=== PATIENT | female | born 1955 | race Caucasian/White ===

== ENCOUNTER → 2017-03-08 10:46 | Outpatient (CLI) | payer BC, SELFPAY ==
--- NOTE | 2017-03-08 10:51 | XR_ITS ---
XR ankle RT min 3V HISTORY: ITS.REASON: RT ANKLE PAIN ORDERING PHYSICIAN: Marah Choudhary PATIENT AGE: 61 years COMPARISON: None FINDINGS: No fracture or dislocation. There is a small lucency at the tip of the medial malleolus and may represent a small subarticular cyst. There is an oval lucency at the distal shaft of the fibula at 9 mm x 3 mm. Nonspecific. No significant arthritic change IMPRESSION: 1. No acute finding 2. Small lucency at the tip of the medial malleolus and the distal shaft of the fibula of questionable clinical significance. If pain persists, bone scan may be of further value to assure that these areas are benign
== END ==
PROVIDERS: PCP Internal Medicine Adolescent Medicine; Visit Provider Nurse Practitioner Family
DX: M25.571 Pain in right ankle and joints of right foot (principal)
CPT/HCPCS: 73610

== ENCOUNTER → 2017-03-28 09:23 | Outpatient (CLI) | payer BC, SELFPAY ==
--- NOTE | 2017-03-28 | XR_ITS ---
XR ankle RT min 3V HISTORY: ITS.REASON: BILATERAL ANKLE PAIN ORDERING PHYSICIAN: Suni Seymour DPM PATIENT AGE: 61 years COMPARISON: None FINDINGS: Weightbearing view performed and compared to 03/08/2017 No acute finding. Small lucencies are once again noted involving the distal shaft of the fibula and the tip of the medial malleolus unchanged. The joint spaces well-preserved. Talar dome is unremarkable. IMPRESSION: No change with no acute finding. Small lucencies of the distal fibula and tip of the medial malleolus of questioned clinical significance
--- NOTE | 2017-03-28 | XR_ITS ---
XR ankle LT min 3V HISTORY: ITS.REASON: BILATERAL ANKLE PAIN ORDERING PHYSICIAN: Suni Seymour DPM PATIENT AGE: 61 years COMPARISON: None FINDINGS: Weightbearing views are performed No fracture or dislocation. No lytic or blastic change. There is normal mineralization.. The joint spaces are well-preserved. No significant degenerative/arthritic changes. No erosive changes evident. Unremarkable talar dome IMPRESSION: Negative left ankle, no acute finding
== END ==
PROVIDERS: Visit Provider Podiatrist
DX: M25.571 Pain in right ankle and joints of right foot (principal); M76.70 Peroneal tendinitis, unspecified leg
CPT/HCPCS: 73610

== ENCOUNTER → 2017-12-30 16:14 | Outpatient (CLI) | payer BC, SELFPAY ==
--- NOTE | 2017-12-30 | MM_ITS ---
MM Dig screening mamm BI w/CAD CAD Screening COMPARISON: Digital mammograms with CAD 10/29/2016 and 09/16/2015 INDICATION: There is no personal or family history of breast cancer TECHNIQUE: Standard CC and MLO images were obtained. R2 CAD reviewed. FINDINGS: Moderate diffuse fibroglandular densities are seen in the central portions of both breasts. Again noted is the benign-appearing nodular density just deep to the nipple right breast shown to be solid on ultrasound previously and likely a fibroadenoma. It is stable and unchanged from previous studies. There are couple benign-appearing calcifications in each breast. There is no suspicious lesion and there are no suspicious microcalcifications. There is minimal arterial calcification in each breast. IMPRESSION: Stable exam no suspicious lesion seen BI-RADS Category: 2 Benign Finding(s) RECOMMENDED FOLLOW-UP: 1YR - 1 YEAR FOLLOW-UP (A letter has been sent to the patient regarding results of the study.)
== END ==
PROVIDERS: PCP Nurse Practitioner Family; Visit Provider Nurse Practitioner Family
DX: Z12.31 Encounter for screening mammogram for malignant neoplasm of breast (principal)
CPT/HCPCS: 77067

== ENCOUNTER → 2018-02-18 15:05 | Outpatient (POV) | payer BC, SELFPAY | PROVIDERS: Visit Provider Dermatology | DX: Z00.00 Encounter for general adult medical examination without abnormal findings (principal) ==

== ENCOUNTER 2018-03-14 16:00 | Outpatient (RCR) | payer BC, SELFPAY ==
--- NOTE | 2018-02-10 10:33 | HMH.PTOPWND ---
Rehab Outpt Wound Evaluation Rehab OP Wound Evaluation Start: 02/10/18 10:04 Freq: Status: Active Protocol: Document 02/10/18 10:26 MARYBETH (Rec: 02/10/18 10:33 PHOGAY [id number]) Electronically Signed By Ronnie Agosto, PT 02/10/18 10:26 Subjective/History History History Pt is 62 yowf who presents with c/o chronic varicose veins with increasing severity x ~ 15 yrs. She reports only mild edema, but increased pain from varicosities, especially in the upper thigh. She reports more discomfort in the evening and she wors on her feet all day. She reports PMH of HTN, DM, and hypothyroid. Subjective Subjective Tender to palpation around pallavi LE, worse in areas of varicose veins. Lymphedema Eval Classification of Lymphedema Secondary Lymphedema Yes: CVI Stemmer's sign Stemmer's Sign no Stage of Lymphedema Lymphedema stages Stage 0 (subjective c/o heaviness and aching) Skin Changes Dry Skin Yes Discoloration of Skin Yes Other Changes Yes Pain Scale Pain Scale (0-10) 6 Affected Extremities Areas Affected by Lymphedema/Edema Right Lower Extremity Left Lower Extremity Manual Lymphatic Drainage Treatment Area MLD Treatment Area Right Lower Extremity Left Lower Extremity Wound Problems/Impairments Impairments Problems/Impairmments Palpation Tenderness Impaired Recreational Activities Increased Edema Lymphedema Present Subjective C/O Pain Impaired Self Care/Self Management Prognosis Rehab Potential Good Clinical Impression Consistent with Diagnosis Yes Short Term Goals Number of Weeks 4 Decreased Palpation Tenderness Yes: to min Decrease Edema Yes Decrease Subjective C/O Pain Yes: 05/21 Patient to Understand Lymphedema Yes Treatment and Exercises Decrease Girth Measurments by (cm) Yes: by 5 cm Print Binding Worker Goals Number of Weeks 8 Decreased Palpation Tenderness Yes: to none Decrease Edema Yes Decrease Subjective C/O Pain Yes: 2/10 Patient to be Ind w/ HEP Yes
== END 2018-03-14 16:05 | disposition home or self-care (01) ==
LOC: PT 16:00
PROVIDERS: Visit Provider Nurse Practitioner Family
DX: I87.2 Venous insufficiency (chronic) (peripheral) (principal)
CPT/HCPCS: 97140; 97162; 97760

== ENCOUNTER → 2019-01-20 14:50 | Outpatient (CLI) | payer BC, SELFPAY ==
--- NOTE | 2019-01-20 14:52 | MM_ITS ---
PROCEDURE: MM DIG SCREENING MAMM BI W/CAD CLINICAL INDICATION: screening There is no personal or family history of breast cancer. COMPARISON: [facility] DIG MAMM-SCREEN ARNULFO from 09/16/2015 [facility] DIG MAMM-SCREEN ARNULFO W/CAD from 10/29/2016 [facility] MM Dig screening mamm BI w/CAD from 12/30/2017 TECHNIQUE: Standard CC and MLO images were obtained. R2 CAD reviewed. FINDINGS: Moderate scattered fibroglandular densities are seen in both breasts. Again noted is the asymmetric benign-appearing nodular density just deep to the nipple right breast which has been shown to be solid on previous ultrasound is stable on mammograms back through 09/16/2015 there are couple benign-appearing microcalcifications right breast there is no new or suspicious lesion in either breast and no suspicious microcalcifications. IMPRESSION: Stable exam with no suspicious lesions seen BI-RAD Category: 2 Benign Finding(s) FOLLOW-UP: 1YR 1 Year Follow-up (A letter has been sent to the patient regarding results of the study.) Dictated by: Dr. David Rivera MD 01/25/2019 12:[address] David Rivera MD in [place] 01/25/2019 12:50
== END ==
PROVIDERS: PCP Nurse Practitioner Family; Visit Provider Nurse Practitioner Family
DX: Z12.31 Encounter for screening mammogram for malignant neoplasm of breast (principal)
CPT/HCPCS: 77067

== ENCOUNTER → 2020-01-22 10:29 | Outpatient (CLI) | payer BC, SELFPAY ==
--- NOTE | 2020-01-22 10:32 | MM_ITS ---
PROCEDURE: MM DIG SCREENING MAMM BI W/CAD Digital Breast Tomosynthesis Included CLINICAL INDICATION: SCREENING There is no personal or family history of breast cancer. COMPARISON: MG [facility] DIG MAMM-SCREEN ARNULFO W/CAD from 10/29/2016 MG [facility] MM Dig screening mamm BI w/CAD from 12/30/2017 MG MM DIG SCREENING MAMM BI W/CAD from 01/20/2019 TECHNIQUE: Standard CC and MLO images and 3D Tomosynthesis was obtained. R2 CAD reviewed. FINDINGS: Scattered fibroglandular densities are seen in both breasts. Again noted is a stable asymmetric density just deep to the nipple right breast which has been shown to be solid on previous ultrasound and has been stable on multiple previous mammograms. There is a small collection of microcalcifications central portion right breast some of which were seen previously but there appear to be additional calcification on the current exam. Recommend the patient return for spot compression magnification views and ultrasound for additional evaluation. IMPRESSION: Moderate breast density with possible change in microcalcifications right breast BI-RAD Category: 0 Need Additional Imaging Evaluation FOLLOW-UP: IMM Immediate Follow-up Recommended (A letter has been sent to the patient regarding results of the study.) Dictated by: Dr. David Rivera MD 01/27/2020 10:24 Dr. David Rivera MD in [place] 01/27/2020 10:24
== END ==
PROVIDERS: PCP Nurse Practitioner Family; Visit Provider Nurse Practitioner Family
DX: Z12.31 Encounter for screening mammogram for malignant neoplasm of breast (principal)
CPT/HCPCS: 77063; 77067

== ENCOUNTER → 2020-02-11 14:04 | Outpatient (CLI) | payer BC, SELFPAY ==
--- NOTE | 2020-02-11 14:06 | MM_ITS ---
PROCEDURE: MM DIG MAMM DX UNILAT RT CAD Referring Doctor: Marah Choudhary Patient Age:64Y CLINICAL INDICATION: ABN MAMM OF RT BREAST Further evaluate calcifications and nodule COMPARISON: MG [facility] DIGITAL MAMM-SCREEN BILATERAL from 05/09/2010 MG [facility] DIGITAL MAMM-SCREEN BILATERAL from 05/27/2012 US BR US BREAST-RT from 06/11/2012 MG [facility] DIG MAMM-SCREEN ARNULFO from 08/23/2014 MG [facility] MM Dig screening mamm BI w/CAD from 12/30/2017 MG MM DIG SCREENING MAMM BI W/CAD from 01/20/2019 MG MM DIG SCREENING MAMM BI W/CAD from 01/22/2020 TECHNIQUE: Standard CC and MLO images were obtained. R2 CAD reviewed. Bilateral digital breast tomosynthesis included. FINDINGS: ---DIAGNOSTIC RIGHT MAMMOGRAM-MAGNIFICATION VIEWS magnification cc MLO and a full 90 degree view of the right breast performed today. Small grouping of fairly dense but slight variable calcifications associated with the tiny 3.8 mm nodular density at the superior right breast, 1 o'clock position again noted the these are likely benign calcifications but since they are new since 2019, associated with small nodule and demonstrate slight varied morphology of these calcifications-suggest stereotactic biopsy for definitive diagnosis The nodular density at the medial retroareolar region has been seen on previous studies dating back to at least 2014; similar size to those previous mammogram studies it is most compatible with a longstanding stable ---ULTRASOUND RIGHT BREAST including axillary survey The nodular density seen on recent mammogram at medial retroareolar now surveyed with ultrasound The is a a longstanding feature This longstanding solid nodule behind the nipple again seen measuring to 1.5 cm maximally maximally. It is a silent nodule and nearly isoechoic to adjacent breast tissue. Of it is most compatible with a stable benign fibroadenoma and appears similar in appearance to studies dating back to 2013. No significant change Tiny benign 2.3 mm the mm cyst at 12 o'clock position.. Insignificant feature. No additional findings otherwise right breast ultrasound-no suspicious masses or architectural distortion elsewhere Axillary survey is demonstrate benign appearing axillary lymph nodes but no significant findings IMPRESSION: 1.. RIGHT DIAGNOSTIC MAMMOGRAM-. RECOMMEND STEREOTACTIC BIOPSY Additional views and magnification views the right breast performed today show a small new cluster of calcifications 1 o'clock, associated with a tiny new breast nodule. Although I suspect more likely benign calcifications would recommend stereotactic biopsy for definitive diagnosisn with this appearance-given this is a new grouping of calcifications since 2019, with slightly varied morphology and associated with a new small nodule. 2:. 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 . Thus this can be followed safely BI-RAD Category: 4 Supicious Abnormality- Biopsy Considered FOLLOW-UP: Biopsy Recommended (A letter has been sent to the patient regarding results of the study.) Dictated by: Nehemiah Rangel MD 02/16/2020 12:56 Nehemiah Rangel MD in [place] 02/16/2020 12:56
== END ==
PROVIDERS: PCP Nurse Practitioner Family; Visit Provider Nurse Practitioner Family
DX: R92.8 Other abnormal and inconclusive findings on diagnostic imaging of breast (principal)
CPT/HCPCS: 76641; 77061; 77065; G0279

== ENCOUNTER → 2020-03-02 11:21 | Outpatient (CLI) | payer BC, SELFPAY ==
--- NOTE | 2020-03-02 11:27 | MM_ITS ---
PROCEDURE: MM STEREOTACTIC LOC RT CLINICAL INDICATION: ABN MAMM Suspicious calcifications of the right breast TECHNIQUE: The patient was placed on the stereotactic table and the abnormality was localized in the most appropriate projection. The breast was prepped in the routine manner, with sterile prep and the overlying skin anesthetized. A 3 to 4 mm skin incision was performed and the 9 gauge sorus vacuum-assisted core biopsy needle was advanced to the region of the calcification. Pre- and post fire images were obtained. After adequate positioning relative to the calcifications was ensured, multiple biopsies were obtained in the region of the calcifications specifically. The core biopsies obtained were sent for specimen mammography. After the calcifications were indeed identified on the specimen mammogram, the procedure was terminated. The patient tolerated the procedure well without complications. Pathology: Benign breast tissue demonstrated usual ductal hyperplasia. Changes consistent with sequela of ruptured duct/cyst. Microcalcifications. IMPRESSION: Status post stereotactic directed biopsy of the right breast showing benign findings. No immediate complications. SPECIMEN RADIOGRAPH: The mammographically evident calcifications from the prior study are currently evident within the Deja dish and within the specimens obtained during mammotome procedure. This is considered an adequate specimen and the procedure was terminated. IMPRESSION: Successful removal of described breast calcifications. BREAST MAMMOGRAM: Compared to the prior study, the previously noted calcification have been removed. Post biopsy changes are present in the medial aspect of the right breast at the previously noted area of calcification. There is evidence of soft tissue changes in the region of the biopsy was soft tissue gas and edema. Impression: Status post removal right breast calcifications as described above. Recommend six-month mammographic follow-up per routine protocol. Dictated by: Vinnie Carpio MD 03/14/2020 12:08 Vinnie Carpio MD in [place] 03/14/2020 12:08
--- NOTE | 2020-03-02 11:27 | MM_ITS ---
PROCEDURE: MM DIG MAMM DX UNILAT RT CAD CLINICAL INDICATION: for evaluation s/p biopsy COMPARISON: MG MM DIG SCREENING MAMM BI W/CAD from 01/22/2020 MG MM SURGICAL SPECIMEN RT from 03/02/2020 TECHNIQUE: Cc and MLO views FINDINGS: S/p stereotactic directed biopsy of the right breast. Cluster of calcifications in the central aspect of the right breast have been removed with post biopsy changes noted slightly medial to midline IMPRESSION: Status post stereotactic directed biopsy of the right breast with post biopsy changes. Recommend six-month follow-up per routine protocol. BI-RAD Category: 2 Benign Finding(s) FOLLOW-UP: 6M 6Month Follow-up (A letter has been sent to the patient regarding results of the study.) Dictated by: Vinnie Carpio MD 03/14/2020 15:59 Vinnie Carpio MD in [place] 03/14/2020 15:59
== END ==
PROVIDERS: PCP Nurse Practitioner Family; Visit Provider Nurse Practitioner Family
DX: R92.0 Mammographic microcalcification found on diagnostic imaging of breast (principal)
CPT/HCPCS: 19081; 76098; 77061; 77065; G0279

== ENCOUNTER → 2021-01-12 09:20 | Outpatient (CLI) | payer BC, SELFPAY ==
[2021-01-12 10:28] LABS: Chloride 98 mmol/L (98-107); Potassium 4.5 mmoL/L (3.5-5.1); Sodium 139 mmol/L (136-145)
[2021-01-12 10:31] LABS: Blood Urea Nitrogen 12 mg/dl (7-17); Estimated Glomerular Filt Rate 72 ml/min (>60); GFR (African American) 88 ML/MIN (>60)
[2021-01-12 10:32] LABS: Anion Gap 11.5 mEq/L (5-15); Calcium 9.7 mg/dl (8.4-10.2); Carbon Dioxide 34 mmol/L (22.0-30.0); Glucose 193 mg/dl (74-100)
[2021-01-12 12:33] LABS: Hemoglobin A1C 8.5 % (4.0-6.0)
== END ==
PROVIDERS: Visit Provider Nurse Practitioner Family
DX: E11.9 Type 2 diabetes mellitus without complications (principal); Z79.84 Long term (current) use of oral hypoglycemic drugs
CPT/HCPCS: 36415; 80048; 83036

== ENCOUNTER → 2022-02-07 09:26 | Outpatient (CLI) | payer BC, SELFPAY ==
--- NOTE | 2022-02-07 09:35 | XR_ITS ---
FINAL REPORT TECHNIQUE: Bone densitometry calculations of the lumbar spine and left hip were obtained. CLINICAL HISTORY: post menopausal FINDINGS: DEXA BONE DENSITY AXIAL SKELETON Using L1-4, the bone mineral density of the spine is 1.188 g/cm2, corresponding to T-score of 1.3. Using the left hip, the bone mineral density of the femoral neck is 0.921 g/cm2, corresponding to a T-score of -0.2. NOTE: T-score: Standard deviation compared with peak bone mass of young adult mean. *Following the recommendations of the International Society of Bone densitometry, classification of hip BMD is based on the lower of two T-scores; total hip or femoral neck. IMPRESSION: Normal bone mineral density of the lumbar spine and hip. Reviewed, Interpreted and Dictated by Randall Harrell III, MD Transcribed by Mary Workman Authenticated and [facility]
--- NOTE | 2022-02-07 09:35 | MM_ITS ---
PROCEDURE INFORMATION: Exam: MG Bilateral Screening 3D Mammography Exam date and time: 02/07/2022 9:27 AM Age: 66 years old Clinical indication: Screening examination TECHNIQUE: Imaging protocol: Bilateral Screening tomosynthesis and 2D mammography including computer-aided detection (CAD) when performed. COMPARISON: 1. MG MM DIG MAMM DX UNILAT RT CAD 03/02/2020 12:47 PM 2. MG MM SURGICAL SPECIMEN RT 03/02/2020 12:34 PM FINDINGS: MAMMOGRAPHY: Breast composition: There are scattered areas of fibroglandular density. Mass: None. Architectural distortion: None. Calcifications: No suspicious calcifications. Asymmetric density: None. Skin thickening: None. Axillary adenopathy: None. IMPRESSION: No mammographic evidence of malignancy. Annual screening is recommended unless otherwise clinically indicated. ASSESSMENT: BI-RADS Category 1: Negative
== END ==
PROVIDERS: PCP Nurse Practitioner Family; Visit Provider Nurse Practitioner Family
DX: Z12.31 Encounter for screening mammogram for malignant neoplasm of breast (principal); Z78.0 Asymptomatic menopausal state; Z13.820 Encounter for screening for osteoporosis
CPT/HCPCS: 77063; 77067; 77080

== ENCOUNTER → 2022-05-03 09:03 | Outpatient (CLI) | payer BC, SELFPAY ==
--- NOTE | 2022-05-03 09:09 | XR_ITS ---
FINAL REPORT CLINICAL HISTORY: PAIN FINDINGS: RIGHT KNEE 3 views of the right knee were obtained. There is no acute fracture or dislocation. Visualized joint spaces are normally aligned. There are osteophytes along the inferior and superior patella margin. There is sharpening of the tibial spines. Soft tissues are unremarkable. IMPRESSION: No acute bony abnormality. Reviewed, Interpreted and Dictated by Marlon Timmons MD Transcribed by Mary Workman Authenticated and [facility]
--- NOTE | 2022-05-03 09:10 | XR_ITS ---
FINAL REPORT CLINICAL HISTORY: PAIN FINDINGS: LEFT KNEE 3 views of the left knee were obtained. There is no acute fracture or dislocation. Visualized joint spaces are normally aligned. There are osteophytes along the inferior and superior patella margin. There is opening of the tibial spine. Soft tissues are unremarkable. IMPRESSION: Findings consistent with mild osteoarthritis. No acute bony abnormality. Reviewed, Interpreted and Dictated by Marlon Timmons MD Transcribed by Mary Workman Authenticated and [facility]
== END ==
PROVIDERS: PCP Nurse Practitioner Family; Visit Provider Nurse Practitioner Family
DX: M25.562 Pain in left knee (principal); M79.605 Pain in left leg; M25.561 Pain in right knee; M79.604 Pain in right leg
CPT/HCPCS: 73562

== ENCOUNTER 2022-07-08 16:44 | Emergency (ER) | payer BC, SELFPAY ==
[2022-07-08 16:45] VITALS: BP 149/65; PULSE 78; RESP 16; TEMP 36.7; O2SAT 98; BMI 30.7
--- NOTE | 2022-07-08 16:58 | HMH.EDGENADL ---
Discharge Plan Disposition Patient Disposition: Home, Self-Care Prescriptions Prescriptions: New ibuprofen 800 mg tablet 800 mg PO TID PRN (Reason: pain) 7 Days Qty: 20 0RF hydrocodone-acetaminophen 5-325 mg tablet 1 tab PO Q6H PRN (Reason: pain) 3 Days Qty: 12 0RF No Action metformin 1,000 mg tablet PO 30 Days Qty: 60 Label Comments: levothyroxine 100 mcg tablet PO 30 Days Qty: 30 Label Comments: losartan 50 mg tablet PO 30 Days Qty: 30 Label Comments: glimepiride 4 mg tablet PO 30 Days Qty: 45 Label Comments: bisoprolol-hydrochlorothiazide 10-6.25 mg tablet PO 30 Days Qty: 30 Label Comments: sitagliptin phosphate [Januvia] 100 mg tablet 100 mg PO ONCE esomeprazole magnesium [Nexium] 20 mg capsule,delayed release(DR/EC) 20 mg PO ONCE aspirin [Adult Aspirin Regimen] 81 mg tablet,delayed release (DR/EC) PO pravastatin 40 mg tablet PO 30 Days Qty: 30 Label Comments: diclofenac sodium [Voltaren] 1 % gel 4 g TOPICAL QID Qty: 30 2RF Rx Instructions: apply to single knee, ankle, foot; gently massage into area; for foot includes sole/toes/top of foot Referrals Follow up/Referrals: Marah Choudhary APRN [Primary Care Provider] - See instructions Activity Restrictions/Add. Instructions Additional Instructions/Restrictions: You have acute pain of your left knee and diagnostic uncertainty. The x-ray did show mild osteoarthritis however your pain is out of proportion to what I normally see with this. Your limited mobility and weightbearing and subjective complaints of redness and warmth early on make me worried about a septic joint however the arthrocentesis attempt was dry. Additionally your inflammatory markers including your CRP and ESR were within normal limits suggesting against the diagnosis of a septic joint or systemic infection. However due to the diagnostic uncertainty I advised that you keep a close eye on yourself return with any worsening of your pain lower extremity swelling shortness of breath or chest pain or high fevers. I would like for you to keep your appointment with your MRI on July 16 and return to the emergency department any worsening symptoms. Clinical Impressions Clinical Impression: Acute pain of left knee Discharge ED Provider: Delmy Holbrook General Adult HPI General Chief complaint: PAIN Stated complaint: LT leg pain Time Seen by Provider: 07/08/22 16:58 History of Present Illness HPI narrative: Patient is a 66-year-old female with no significant past medical history presenting today with nontraumatic left knee pain. She states that this began a few weeks ago she went to an orthopedic surgeon and had an intra-articular joint injection that was done without any improvement in her symptoms. She states that her knee has progressed to the point of having severe pain subjective warmth swelling and difficulty with range of motion out to the point of having difficulty bearing weight as of today. She denies any fevers chills or systemic symptoms. She has no history of gout. There is no circumferential lower leg swelling and no pain outside of the localized aspect of her knee. No history of DVT or PE. No chest pain or shortness of breath. No prolonged immobilizations. She states the pain is severe at the moment. Related Data Home Medications Medication Instructions Recorded Confirmed aspirin 81 mg tablet,delayed PO 03/28/17 release (Adult Aspirin Regimen) bisoprolol 10 PO 30 days ##30 03/28/17 mg-hydrochlorothiazide 6.25 mg tablet esomeprazole magnesium 20 mg 20 mg PO ONCE 03/28/17 capsule,delayed release (Nexium) glimepiride 4 mg tablet PO 30 days ##45 03/28/17 levothyroxine 100 mcg tablet PO 30 days ##30 03/28/17 losartan 50 mg tablet PO 30 days ##30 03/28/17 metformin 1,000 mg tablet PO 30 days ##60 03/28/17 pravastatin
[2022-07-08 17:01] VITALS: BP 130/75; PULSE 73; RESP 20; O2SAT 96
--- NOTE | 2022-07-08 17:10 | XR_ITS ---
PROCEDURE INFORMATION: Exam: XR Left Knee Exam date and time: 07/08/2022 5:25 PM Age: 66 years old Clinical indication: Pain; Knee; Left; Additional info: Non traumatic pain TECHNIQUE: Imaging protocol: Radiologic exam of the left knee. Views: 3 views. COMPARISON: CR XR KNEE LT 3V 05/03/2022 9:20 AM FINDINGS: Bones/joints: There is moderate joint space narrowing in the medial compartment. There is mild spurring of the tibial spines. No acute fracture. Small amount of joint fluid noted. Soft tissues: Normal. IMPRESSION: Mild osteoarthritis and small joint effusion. No acute fracture
[2022-07-08 17:31] VITALS: BP 125/56; PULSE 72; RESP 20; O2SAT 95
[2022-07-08 17:42] LABS: Alanine Aminotransferase 26 U/L (12-78); Albumin Level 4.3 g/dl (3.5-5.0); Albumin/Globulin Ratio 1.3 (1.1-1.8); Alkaline Phosphatase 41 U/L (38-126); Anion Gap 16.3 mEq/L (5-15); Aspartate Amino Transferase 31 U/L (14-36); Bilirubin,Total 0.4 mg/dl (0.2-1.3); Blood Urea Nitrogen 21 mg/dl (7-17); Calcium 9.2 mg/dl (8.4-10.2); Carbon Dioxide 32 mmol/L (22.0-30.0); Chloride 98 mmol/L (98-107); Creatinine Clearance Estimated 70 mL/min (50-200); Estimated Glomerular Filt Rate 50 ml/min (>60); GFR (African American) 61 ML/MIN (>60); Globulin 3.3 g/dL (1.3-3.2); Glucose 184 mg/dl (74-100); Potassium 4.3 mmoL/L (3.5-5.1); Sodium 142 mmol/L (136-145); Total Protein,Serum 7.6 g/dl (6.3-8.2)
[2022-07-08 17:43] LABS: Basophils % 0.7 % (0.1-2.0); Eosinophils # 0.2 K/mm3 (0.0-0.4); Hematocrit 39.4 % (37.0-47.0); Hemoglobin 12.6 g/dL (12.2-16.2); Lymphocytes # 1.6 K/mm3 (0.7-4.5); Lymphocytes % 31.3 % (10-50); Mean Corpuscular HGB Conc 32.1 g/dL (31.8-35.4); Mean Corpuscular Volume 84.1 fl (81-99); Mean Platelet Volume 7.7 fl (7.4-10.4); Monocytes # 0.4 K/mm3 (0.1-1.0); Monocytes % 6.6 % (1.7-9.3); Neutrophils % 57.3 % (37.0-80.0); Platelet Count 324 K/mm3 (142-424); Red Blood Count 4.68 M/mm3 (4.20-5.40); Red Cell Distribution Width 14.8 % (11.5-17.5); White Blood Count 5.2 K/mm3 (4.8-10.8)
[2022-07-08 17:47] LABS: C-Reactive Protein 0.7 mg/L (0-4)
[2022-07-08 17:51] LABS: Activated Partial Thrombo Time 25.4 seconds (22.8-30.6); INR 0.97 (0.9-1.1); Prothrombin Time 10.5 seconds (10.1-12.5)
[2022-07-08 18:01] VITALS: BP 141/51; PULSE 79; RESP 20; O2SAT 99
[2022-07-08 18:22] LABS: Erythrocyte Sedimentation Rate 25 mm/hr (0-30)
[2022-07-08 18:36] VITALS: BP 140/66; PULSE 79; RESP 20; TEMP 36.7; O2SAT 99
== END 2022-07-08 18:38 | disposition home or self-care (01) ==
PROVIDERS: Emergency Provider Student in an Organized Health Care Education/Training Program; PCP Nurse Practitioner Family
DX: M25.562 Pain in left knee (principal); R22.42 Localized swelling, mass and lump, left lower limb
CPT/HCPCS: 76882; 36415; 73562; 80053; 85025; 85610; 85651; 85730; 86140; 87040; 96361; 96374; 99285

== ENCOUNTER 2022-09-12 10:00 | Outpatient (RCR) | payer BC, SELFPAY | END 2022-09-12 10:05 | disposition home or self-care (01) | LOC: PT 10:00 | PROVIDERS: PCP Nurse Practitioner Family; Visit Provider Orthopaedic Surgery | DX: M25.562 Pain in left knee (principal) | CPT/HCPCS: 97010; 97014; 97016; 97110; 97112; 97163; 97164; 97530; 97535; G0283 ==

== ENCOUNTER 2023-02-20 13:05 | Outpatient (CLI) | payer MEDICARE, SELFPAY ==
--- NOTE | 2023-02-20 13:12 | MM_ITS ---
PROCEDURE INFORMATION: Exam: MG Bilateral Screening 3D Mammography Exam date and time: 02/20/2023 1:02 PM Age: 67 years old Clinical indication: Screening. No family history of breast cancer. TECHNIQUE: Imaging protocol: Bilateral Screening tomosynthesis and 2D mammography including computer-aided detection (CAD) when performed. COMPARISON: 1. MG MM DIG SCREENING MAMM BI W/CAD 02/07/2022 9:27 AM 2. MG MM DIG MAMM DX UNILAT RT CAD 03/02/2020 12:47 PM 3. MG MM SURGICAL SPECIMEN RT 03/02/2020 12:34 PM 4. MG MM STEREOTACTIC LOC RT 03/02/2020 12:05 PM FINDINGS: MAMMOGRAPHY: Breast composition: There are scattered areas of fibroglandular density. Mass: No suspicious mass. Architectural distortion: None. Calcifications: No suspicious calcifications. Asymmetric density: None. Skin thickening: None. Axillary adenopathy: None. IMPRESSION: No mammographic evidence of malignancy. Annual screening is recommended unless otherwise clinically indicated. ASSESSMENT: BI-RADS Category 1: Negative
== END 2023-02-20 23:59 ==
LOC: RAD 13:05
PROVIDERS: PCP Nurse Practitioner Family; Visit Provider Nurse Practitioner Family
DX: Z12.31 Encounter for screening mammogram for malignant neoplasm of breast (principal)
CPT/HCPCS: 77063; 77067

== ENCOUNTER 2023-10-17 11:00 | Outpatient (RCR) | payer MEDICARE, SELFPAY | END 2023-10-17 11:05 | disposition home or self-care (01) | LOC: PT 11:00 | PROVIDERS: Visit Provider Orthopaedic Surgery | DX: M17.12 Unilateral primary osteoarthritis, left knee (principal); M72.2 Plantar fascial fibromatosis | CPT/HCPCS: 97014; 97035; 97110; 97140; 97163; 97164; 97530; G0283 ==

== ENCOUNTER 2024-03-18 09:43 | Outpatient (CLI) | payer MEDICARE, SELFPAY ==
--- NOTE | 2024-03-18 09:46 | MM_ITS ---
PROCEDURE INFORMATION: Exam: MG Bilateral Screening 3D Mammography Exam date and time: 03/18/2024 9:55 AM Age: 68 years old Clinical indication: Screening examination TECHNIQUE: Imaging protocol: Bilateral Screening tomosynthesis and 2D mammography including computer-aided detection (CAD) when performed. Per the technologist the best possible images were obtained as the patient had difficulty with positioning. The exam is degraded by lack of posteroinferior tissue on both MLO views. COMPARISON: 1. MG MM DIG SCREENING MAMM BI W/CAD 02/20/2023 1:02 PM 2. MG MM DIG SCREENING MAMM BI W/CAD 02/07/2022 9:27 AM FINDINGS: MAMMOGRAPHY: Breast composition: There are scattered areas of fibroglandular density. Mass: No suspicious masses. Architectural distortion: None. Calcifications: No suspicious calcifications. Asymmetric density: None. Skin thickening: None. Axillary adenopathy: None. IMPRESSION: No mammographic evidence of malignancy. Annual screening is recommended unless otherwise clinically indicated. ASSESSMENT: BI-RADS Category 1: Negative.
== END 2024-03-18 23:59 | disposition home or self-care (01) ==
LOC: RAD 09:43
PROVIDERS: PCP Nurse Practitioner Family; Visit Provider Internal Medicine Adolescent Medicine
DX: Z12.31 Encounter for screening mammogram for malignant neoplasm of breast (principal)
CPT/HCPCS: 77063; 77067

== ENCOUNTER 2025-02-10 10:26 | Outpatient (CLI) | payer MEDICARE, SELFPAY ==
--- NOTE | 2025-02-10 10:28 | US_ITS ---
FINAL REPORT TECHNIQUE: Sonographic images of the kidneys and retroperitoneum were obtained in the longitudinal and transverse planes. CLINICAL HISTORY: CHRONIC KIDNEY DISEASE COMPARISON: None FINDINGS: The right kidney measures 10.5 cm in [id number] length. No hydronephrosis, mass, or stone. There is cortical thinning with normal echogenicity. The left kidney measures 10.9 cm in [id number] length. No hydronephrosis, mass, or stone. Cortical echogenicity and thickness are normal. IMPRESSION: Mild right renal cortical thinning. Reviewed, Interpreted and Dictated by Odette Ordaz MD Transcribed by Rosemary Will Authenticated and [facility]
--- OUTSIDE RECORDS SUMMARY | 2025-02-10 10:29 | XMS_ITS | Clinical Summary ---
Author Organization [facility] Address [address] [place] [address] Care Team Providers Care Tube Repairer Name Role Phone Marah Choudhary YEVGENIY Primary Care Provid er Allergies Active Allergy Reactions Criticality Noted Date Comments Sulfa Antibiotics 08/03/2015 Medications losartan (COZAAR) 50 MG tablet Take 50 mg by mouth daily. Active lansoprazole (PREVACID) 15 MG capsule Take 15 mg by mouth. Active pravastatin (PRAVACHOL) 20 MG tablet Take 20 mg by mouth daily. Active metFORMIN (GLUCOPHAGE) 500 MG tablet Take 500 mg by mouth 2 (two) times a day. Active aspirin 81 MG chewable tablet Chew 81 mg daily. Active levothyroxine (SYNTHROID, LEVOTHROID) 100 MCG tablet Take 100 mcg by mouth daily. Active Active Problems No known active problems Family History Medical History Relation Name Comments Lymphoma Father Relation Name Status Comments Father Social History Tobacco Use Types Packs/Day Years Used Date Smoking Tobacco: Never Alcohol Use Standard Drinks/Week Comments No 0 (1 standard drink = 0.6 oz pur e alcohol) Abuse Screen Answer Date Recorded Unsafe at Home or Work/School Not on file Feels Threatened by Someone? Not on file 10/2022 Does Anyone Keep You from Co ntacting Others or Doint Things Outside the Home? Not on file 11/19/2022 Physical Sign of Abuse Present Not on file 1 Housing Stability Answer Date Recorded Current Living Arrangements Not on file 10/2022 Potentially Unsafe Housing Conditions Not on serge e 11/19/2022 Family and Community Support Answer Rory e Recorded Help with Day-to-Day Activities Not on file 11/19/2022 Lonely or Isolated Not on file 11/19/2022 Employment Answer Date Recorded Do you want help finding or keeping work or a harry b? Not on file 11/19/2022 Disabilities Answer Date Recorded Concentrating, Remembering, or Making Decisions Difficulty Not on file 11/19/2022 Doing Errands Independently Difficulty Not on fi le 11/19/2022 Education Answer Date Recorded Help with school or training? Not on file Preferred Language Not on file 11/19/2022 Comments No Sex and Gender Information Value Date Recorded Sex Assigned at Not on file Legal Sex Female 12:34 PM EDT Gender Identity Not on file Sexual Orientation Not on file Occupation Industry Job Start Date Job End Date [employer] Not on file Not on file Not on [facility] Last Filed Vital Signs Vital Sign Reading Time Taken Comments Blood Pressure 130/61 10/01/2018 1:05 PM EDT Pulse 72 10/01/2018 1:05 PM EDT Temperature 36.6 C (97.8 F) 10/01/2018 1:05 PM EDT Respiratory Rate 16 10/01/2018 1:05 PM EDT Oxygen Saturation 99% 10/01/2018 1:05 PM EDT Inhaled Oxygen Concentration - - Weight 83 kg (183 lb) 10/01/2018 1:05 PM EDT Height 167.6 cm (5' 6 ) 10/01/2018 1:05 PM EDT Body Mass Index 29.54 10/01/2018 1:05 PM EDT Plan of Treatment Health Maintenance Due Date Last Done Comments DXA SCAN 1957 TDAP/TD VACCINES (1 - Tdap) 1976 COLOGUARD 2002 COLON CANCER SCREENING 5 YEA R SIGMOIDOSCOPY [address] COLONOGRAPHY 2002 FIT Testing (1 year) 2002 Pneumococcal Vaccine 50+ (1 of 1 - PCV) 11/26/2007 ZOSTER VACCINE (1 of 2) 11/26/2007 COLORECTAL CANCER SCREENING 09/19/2016 FECAL OCCULT BLOOD TEST 09/19/2016 09/20/2015 ANNUAL PHYSICAL 09/20/2016 HEPATITIS C SCREENING 09/20/2016 MAMMOGRAM 09/15/2017 09/16/2015, 05/02/2012, 06/11/2012 PAP SMEAR 10/02/2019 10/01/2018, 09/12, 09/20/2016, Additional history exists INFLUENZA VACCINE 09/11/2024 COVID-19 Vaccine (2023-2 5 season) 2024 Procedures Procedure Name Priority Date/Time Associated Diagnosis Comments SCANNED - PAP SMEAR 10/01/2018 POCT OCCULT BLOOD STOOL Routine 09/20/2015 2:54 PM EDT Well woman exam with routine gynecological exam MAMMOGRAPHY Routine 06/11/2012 from Last 3 Months or Most Recently Relevant to Health Maintenance Results * SCANNED - PAP SMEAR (10/01/2018) Lavonne Crain APRN CHART REVIEW TABS F inal Result * POCT occult blood stool (09/20/2015 2:54 PM EDT) Fecal Occult Blood Negative [facility] Stool 09/20/2015 2:54 PM EDT Lavonne Crain APRN POINT OF CARE TEST ORD ERABLES Final Result [facility]
[address] [place] [address], * MAMMOGRAPHY (06/11/2012) Mammogram last mammogram Anatomical Region Laterality Modality Other Historical Provider HEALTH MAINTENANCE Final Result from Last 3 Months or Most Recently Relevant to Health Maintenance Insurance [employer] Member Subscriber Plan / Payer (Ef fective 2014-Present) Name:Eulalia Lamb Relation to Subscriber:Self Name:Eulalia Lamb Payer ID:[id number] (NAIC) Type:Not on file Address: [facility] [id number] [id number] Care Teams Tube Repairer Relationship Specialty Start Date End Date Marah Choudhary APRN [address] [facility] [address] [facility] [address] [place] [address] PCP - General Family Medicine 09/20/15
== END 2025-02-10 23:59 | disposition home or self-care (01) ==
LOC: RAD 10:26
PROVIDERS: PCP Nurse Practitioner Family; Visit Provider Internal Medicine Adolescent Medicine
DX: N28.89 Other specified disorders of kidney and ureter (principal); N18.31 Chronic kidney disease, stage 3a
CPT/HCPCS: 76770